=== PATIENT | female | born 1940 | race Caucasian/White ===

== ENCOUNTER 2022-11-03 23:16 | Emergency (ER) | payer OTHER ==
[~2022-11-03] VITALS: Ht 165.1 cm; Wt 104.3 kg
[~2022-11-03 23:16] MED LIST: ALPR0.25 PO; AMLO2.5T2 PO; ATEN50TA PO; ATOR20TA64 PO; LISI10TA29 PO; OMEP40CA20 PO; SYN50 PO
[2022-11-03 23:22] VITALS: BP_SYST 155; PULSE 65; RESP 16; TEMP 96.5; O2SAT 99
[2022-11-04] MEDS ORDERED: MECLIZINE HCL 25 MG TABLET (ANITVERT) PO ONE
[2022-11-04] MEDS ORDERED: ONDANSETRON 4 MG ODT TAB PO ONE
[2022-11-04 00:42] LABS: BILIRUBIN,URINE NEGATIVE (NEGATIVE); BLOOD, URINE NEGATIVE (NEGATIVE); CLARITY/URINE CLEAR (CLEAR); COLOR,URINE YELLOW (YELLOW); GLUCOSE,URINE NEGATIVE (NEGATIVE); KETONES,URINE NEGATIVE (NEGATIVE); LEUKOCYTE ESTERASE ,URINE NEGATIVE (NEGATIVE); PROTEIN URINE NEGATIVE (NEGATIVE)
[2022-11-04 00:43] LABS: NITRITE, URINE NEGATIVE (NEGATIVE); UROBILINOGEN,URINE 0.2 (0.2-1.0)
[2022-11-04] MEDS ORDERED: DIAZEPAM 5 MG TABLET (VALIUM) PO ONE (01:00)
[2022-11-04] MEDS ORDERED: ONDA8TAB60 PO (01:02)
[2022-11-04] MEDS ORDERED: OMEP40CA20 PO (01:02)
[2022-11-04] MEDS ORDERED: DIAZ5TAB PO (01:02)
[2022-11-04 02:21] VITALS: BP_SYST 155; PULSE 65; RESP 16; TEMP 96.5; O2SAT 99
== END 2022-11-04 02:39 | disposition home or self-care (01) ==
LOC: SED 23:16
DX: R42 Dizziness and giddiness (principal); R11.0 Nausea; R07.9 Chest pain, unspecified; I10 Essential (primary) hypertension; Z79.899 Other long term (current) drug therapy
CPT/HCPCS: 99284; 93005; 81003; J8597; Q0162

== ENCOUNTER 2023-01-24 18:34 | Observation (INO) | payer OTHER ==
[~2023-01-24] VITALS: Ht 170.2 cm; Wt 102.5 kg
[~2023-01-24 18:34] MED LIST changes: +DIAZ5TAB PO; +ONDA8TAB60 PO
[2023-01-24 18:40] VITALS: BP_SYST 140; PULSE 70; RESP 19; TEMP 96.8; O2SAT 96
[2023-01-24 20:08] LABS: BASOPHILS % (AUTO) 0.5 % (0.0-2.0); EOSINOPHILS # (AUTO) 0.2 K/uL (0.0-0.4); EOSINOPHILS % (AUTO) 2.4 % (0.0-4.0); HEMATOCRIT 41.6 % (36-48); LYMPHOCYTES # (AUTO) 1.8 K/uL (1.0-5.5); LYMPHOCYTES % (AUTO) 23.9 % (20.5-51.5); MEAN CORPUSCULAR HEMOGLOBIN 31 pg (27-31); MEAN CORPUSCULAR HGB CONC 34 % (32-36); MEAN CORPUSCULAR VOLUME 93 fL (79.0-98.0); MONOCYTES # (AUTO) 0.7 K/uL (0.0-1.0); MONOCYTES % (AUTO) 9.2 % (1.7-9.3); NEUTROPHILS # (AUTO) 4.9 K/uL (1.8-7.7); PLATELET COUNT (AUTO) 231 K/uL (130-430); RED BLOOD CELL COUNT(AUTO) 4.49 MIL/uL (4.2-6.2); RED CELL DISTRIBUTION WIDTH 13.1 % (9.0-15.0); WHITE BLOOD COUNT (AUTO) 7.7 K/uL (4.8-10.8)
[2023-01-24 20:22] LABS: ALANINE AMINOTRANSFERASE 25 U/L (12-78); ALBUMIN 3.4 g/dL (3.4-4.8); ANION GAP 5 (5-15); ASPARTATE AMINOTRANSFERASE 15 U/L (10-37); CALCIUM 9.4 mg/dL (8.4-11.0); CARBON DIOXIDE 30 mmol/L (23-29); CHLORIDE 105 mmol/L (98-107); CREATININE 0.84 mg/dL (0.55-1.30); GLUCOSE 122 mg/dL (74-106); POTASSIUM 4.1 mmol/L (3.5-5.1); SODIUM SERUM 140 mmol/L (136-145); TOTAL BILIRUBIN 0.2 mg/dL (0.0-1.0); UREA NITROGEN, BLOOD 18 mg/dL (8-21)
[2023-01-25] MEDS ORDERED: ACETAMINOPHEN 500 MG TABLET PO ONE (05:15)
[2023-01-25] MEDS ORDERED: DIAZEPAM 5 MG TABLET (VALIUM) PO PRN (11:15)
[2023-01-25] MEDS ORDERED: ALPRAZolam 0.25 MG TABLET PO PRN (11:15)
[2023-01-25] MEDS ORDERED: PANTOPRAZOLE SODIUM 40 MG TAB PO ONE (12:00)
[2023-01-25 13:39] VITALS: BP_SYST 130; PULSE 74; RESP 18; TEMP 97.7; O2SAT 97
[2023-01-25] MEDS ORDERED: LEVOTHYROXINE SODIUM 0.05 MG TABLET PO ONE (16:45)
[2023-01-25] MEDS ORDERED: ATENOLOL 50 MG TABLET (TENORMIN) PO ONE (16:45)
[2023-01-25] MEDS ORDERED: LISINOPRIL 10 MG TABLET (PRINIVIL) PO ONE (16:45)
[2023-01-25] MEDS ORDERED: amLODIPine BESYLATE 5 MG TABLET PO ONE (16:45)
[2023-01-25 16:49] VITALS: BP_SYST 140; PULSE 62; RESP 18; TEMP 98; O2SAT 97
[2023-01-25] MEDS: SUCRALFATE 1 GM/10 ML UDC GT SCH (17:23)
[2023-01-25 20:00] VITALS: BP_SYST 133; PULSE 62; RESP 18; TEMP 97.8; O2SAT 97
[2023-01-25] MEDS: PANTOPRAZOLE SODIUM 40 MG TAB PO SCH (21:03)
[2023-01-26 00:31] VITALS: BP_SYST 133; PULSE 79; RESP 18; TEMP 98.6; O2SAT 96
[2023-01-26 05:32] LABS: BASOPHILS # (AUTO) 0.1 K/uL (0.0-0.2); BASOPHILS % (AUTO) 0.7 % (0.0-2.0); EOSINOPHILS # (AUTO) 0.2 K/uL (0.0-0.4); EOSINOPHILS % (AUTO) 2.2 % (0.0-4.0); HEMATOCRIT 42.1 % (36-48); HEMOGLOBIN 13.7 g/dL (12.0-16.0); LYMPHOCYTES # (AUTO) 1.6 K/uL (1.0-5.5); LYMPHOCYTES % (AUTO) 20.1 % (20.5-51.5); MEAN CORPUSCULAR HEMOGLOBIN 30 pg (27-31); MEAN CORPUSCULAR HGB CONC 33 % (32-36); MEAN CORPUSCULAR VOLUME 93 fL (79.0-98.0); MONOCYTES # (AUTO) 0.6 K/uL (0.0-1.0); MONOCYTES % (AUTO) 7.6 % (1.7-9.3); NEUTROPHILS # (AUTO) 5.5 K/uL (1.8-7.7); NEUTROPHILS % (AUTO) 69.4 % (40.0-70.0); PLATELET COUNT (AUTO) 220 K/uL (130-430); RED BLOOD CELL COUNT(AUTO) 4.54 MIL/uL (4.2-6.2); RED CELL DISTRIBUTION WIDTH 12.9 % (9.0-15.0); WHITE BLOOD COUNT (AUTO) 7.9 K/uL (4.8-10.8)
[2023-01-26 06:04] LABS: ANION GAP 5 (5-15); CALCIUM 9.4 mg/dL (8.4-11.0); CARBON DIOXIDE 29 mmol/L (23-29); CHLORIDE 107 mmol/L (98-107); CREATININE 0.72 mg/dL (0.55-1.30); GLUCOSE 101 mg/dL (74-106); POTASSIUM 4.2 mmol/L (3.5-5.1); SODIUM SERUM 141 mmol/L (136-145); UREA NITROGEN, BLOOD 21 mg/dL (8-21)
[2023-01-26] MEDS: SUCRALFATE 1 GM/10 ML UDC GT SCH (06:44)
[2023-01-26] MEDS ORDERED: SUCR1TAB2 PO (06:58)
[2023-01-26] MEDS ORDERED: LEVOTHYROXINE SODIUM 0.05 MG TABLET PO SCH (07:00)
[2023-01-26 08:00] VITALS: BP_SYST 157; PULSE 70; RESP 18; TEMP 98.7; O2SAT 97
[2023-01-26] MEDS ORDERED: amLODIPine BESYLATE 5 MG TABLET PO SCH (09:00)
[2023-01-26] MEDS ORDERED: LISINOPRIL 10 MG TABLET (PRINIVIL) PO SCH (09:00)
[2023-01-26] MEDS ORDERED: ATENOLOL 50 MG TABLET (TENORMIN) PO SCH (09:00)
[2023-01-26] MEDS ORDERED: ATORVASTATIN 20 MG TABLET PO SCH (09:00)
[2023-01-26] MEDS: PANTOPRAZOLE SODIUM 40 MG TAB PO SCH (09:09)
[2023-01-26 11:27] VITALS: BP_SYST 145; PULSE 57; RESP 16; TEMP 97; O2SAT 97
[2023-01-26 11:56] VITALS: BP_SYST 146; PULSE 63; RESP 16; TEMP 98.1; O2SAT 98
== END 2023-01-26 12:15 | disposition home or self-care (01) ==
LOC: SED 18:34 → STU 21:13
PROVIDERS: ADMIT Specialist; ATTEND Specialist
DX: R07.89 Other chest pain (principal); K21.9 Gastro-esophageal reflux disease without esophagitis; K29.70 Gastritis, unspecified, without bleeding; I10 Essential (primary) hypertension; E03.9 Hypothyroidism, unspecified; E78.5 Hyperlipidemia, unspecified; F41.9 Anxiety disorder, unspecified; E66.01 Morbid (severe) obesity due to excess calories; Z79.899 Other long term (current) drug therapy
CPT/HCPCS: 80053; 83880; 85025 ×2; 84484 ×2; 36415 ×3; 93005; 71045; 99285; 80048; G0378 ×3